=== PATIENT | male | born 1980 | race Caucasian/White ===

== ENCOUNTER → 2023-02-07 | Outpatient (CLI) | payer OTHER, SELFPAY ==
--- NOTE | 2023-02-07 13:54 | NEURO_ITS ---
NCS and/or EMG Patient Report Ordering Doctor: Joni Gann DATE OF SERVICE: 02/07/23 Tyshawn presents for electrodiagnostic testing of the right upper limb. He reports numbness and tingling in the right hand, with occasional weakness. Electrodiagnostic findings: Right median motor nerve demonstrates prolonged dis day latency with normal amplitude and conduction velocity. Normal right ulnar motor response, including conduction across the elbow. Prolonged right median F wave. Prolonged right median sensory latency at the wrist. On needle EMG, all muscles tested the right upper limb showed no evidence of denervation with normal motor unit action potentials. Electrodiagnostic impression: This is an abnormal study of the right upper limb 1. Electrodiagnostic findings suggestive of right-sided median mononeuropathy. This is consistent with a moderate right carpal tunnel syndrome. 2. No electrodiagnostic evidence is noted for cervical radiculopathy.
== END | disposition home or self-care (01) ==
PROVIDERS: PCP Family Medicine; Referring Provider Family Medicine; Visit Provider Family Medicine
DX: R20.0 Anesthesia of skin (principal); R20.2 Paresthesia of skin
CPT/HCPCS: 95886; 95909; 95910

== ENCOUNTER 2023-05-20 01:21 | Emergency (ER) | payer OTHER, SELFPAY ==
[2023-05-20 01:22] VITALS: PULSE 89; RESP 17; TEMP 36.2; O2SAT 97; BMI 44.1
[2023-05-20 01:26] VITALS: BP 132/85
[2023-05-20] MEDS: Ondansetron 4 MG/2 ML Vial IV (01:47)
[2023-05-20] MEDS: dexAMETHasone 10 MG/ML Vial IV (01:48)
[2023-05-20] MEDS: Morphine 4 MG/ML Syringe IV (01:48)
[2023-05-20] MEDS: diazePAM 5 MG Tablet PO (01:49)
[2023-05-20 01:57] LABS: Basophil# 0.05 X10^3/uL; Basophil% 0.3 % (0-1); Eosinophil# 0.11 X10^3/uL; Eosinophils% 0.7 % (0-5); Hemoglobin 13.5 g/dL (13.0-16.5); Lymphocyte % 8.2 % (19-41); Mean Corp Hgb Conc 33.8 g/dL (32-36); Mean Corpuscular Hgb 31.3 pg (27.0-32.0); Mean Corpuscular Volume 92.8 fL (80-94); Monocyte# 1.29 X10^3/uL; Monocyte% 8.8 % (0-10); NRBC Flagged by Analyzer 0 % (0-5); Neutrophil # 11.99 X10^3/uL (2.7-7.7); Neutrophil % 81.7 % (47-70); Platelet Count 259 K/mm3 (150-450); RBC Distribution Width CV 12.7 % (11.6-14.6); Red Blood Count 4.31 M/mm3 (4.6-6.2); White Blood Count 14.7 K/mm3 (4.4-11.0)
[2023-05-20 02:17] LABS: Anion Gap 6 (5-15); BUN 16 mg/dL (7-18); BUN/Creat Ratio 13.9 RATIO (10-20); CPK Total, Creatine Kinase 150 U/L (39-308); Calcium,Total 9.7 mg/dL (8.5-10.1); Chloride 105 mmol/L (98-107); Creatinine, Serum 1.15 mg/dL (0.70-1.30); EST Glomerular Filtration Rate 73 mL/min (>60); Est Glom Filt Rate - Afr Amer 89 mL/min (>60); Glucose 138 mg/dL (74-106); Magnesium 1.8 mg/dL (1.6-2.6); Potassium 4.2 mmol/L (3.5-5.1); Sodium Level 137 mmol/L (136-145)
--- NOTE | 2023-05-20 02:21 | CT_ITS ---
STUDY: CT LUMBAR SPINE WITHOUT CONTRAST REASON FOR EXAM: Male, 42 years old patient with back pain. Questionable osteomyelitis. RADIATION DOSAGE (If Supplied By Facility): CTDIvol = ( 48.72 ) mGy, DLP = ( 1744.39 ) mGycm TECHNIQUE: The patient was scanned in a multi detector CT scanner. High resolution transaxial imaging was performed. Images were obtained from T10 to sacrum. Sagittal and coronal images were reconstructed. Individualized dose optimization techniques were used for this CT. COMPARISON: Prior comparison studies are not available for review at this time. FINDINGS: There is grade 1 spondylolisthesis at L4-5 secondary to spondylolysis of L4. There is mild straightening of the normal lumbar lordosis otherwise. There is no substantial scoliosis. There is eburnation of the endplates of L4 and L5 probably secondary to chronic discogenic changes. Remaining imaged thoracic and lumbar vertebral bodies are normal in appearance. There is no demonstrated compression deformity or fracture of the visualized lumbar vertebrae. L1-2: Normal endplates. Normal disc height and morphology. Normal bilateral facet joints. Normal central canal and bilateral lateral recesses. Normal bilateral intervertebral neural foramina. L2-3: Normal endplates. Normal disc height and morphology. Normal bilateral facet joints. Normal central canal and bilateral lateral recesses. Normal bilateral intervertebral neural foramina. L3-4: There is mild annular disk bulge and osteophyte complex. There is mild degenerative arthropathy of the facet joints. Bilateral neuroforamina are narrowed. There is no appreciable acquired central canal stenosis. L4-5: There is uncovering of the disc secondary to anterolisthesis. There is severe narrowing of this disc. There is mild central canal stenosis. There is severe neural foraminal narrowing. L5-S1: Normal endplates. Normal disc height and morphology. Normal bilateral facet joints. Normal central canal and bilateral lateral recesses. Normal bilateral intervertebral neural foramina. Normal visualized paraspinous soft tissue structures. CT/Spine Lumbar without Contrast IMPRESSION: 1. No CT evidence to suggest discitis or osteomyelitis. 2. Grade 1 spondylolisthesis at L4-5 secondary to spondylolysis of L4. 3. Chronic discogenic changes are visible at L4-L5 with disc space narrowing and vacuum disc phenomenon. Electronically Signed: Mary Roy MD at 3:18 EDT ,
[2023-05-20] MEDS: Orphenadrine 60 MG/2 ML Ampul IV (02:47)
[2023-05-20] MEDS: HYDROmorphone 1 MG/ML Syringe IV (02:48)
--- NOTE | 2023-05-20 03:37 | EDS_ITS ---
HPI History of Present Illness Chief Complaint: Back Informant: patient Narrative Narrative: Patient is a 42-year-old male who reports a past medical history of chronic back pain. He states he has needed injections in the past and has a back surgeon that he sees. He states he has been doing well for quite some time and he denies any recent back surgery or injection. He also denies any loss of bowel or bladder control or IV drug use. He states that he was working on a friend's boat and after doing so noticed a small amount of pain in his low back. He states that throughout the day the pain seemed to be coming in waves and each time seem to be more and more intense. He states he got to the point where he could not get out of his car secondary to increased pain with motion. He was trying to sleep and with any type of turning he had severe pain that he felt was radiating down his spine and secondary to this presents for evaluation. [facility] Medical History (Updated 05/20/23 @ 03:[address] Amado Koo, DO) Back complaints Gout Home Medications allopurinol 300 mg tablet 300 mg PO DAILY 05/20/23 [History Last Taken Unknown] atorvastatin 40 mg tablet 40 mg PO DAILY 05/20/23 [History Last Taken Unknown] diazepam 10 mg tablet (Valium) 10 mg PO TID PRN muscle spasm 5 days #15 tabs 05/20/23 [Rx Last Taken Unknown] levothyroxine 88 mcg tablet (Synthroid) 88 mcg PO DAILY 05/20/23 [History Last Taken Unknown] oxycodone-acetaminophen 5 mg-325 mg tablet (Percocet) 1 tab PO Q6H PRN pain 3 days #12 tabs 05/20/23 [Rx Last Taken Unknown] Allergy/AdvReac Type Severity Reaction Status Date / Time No Known Allergies Allergy Verified 05/20/23 01:22 Social History Smoking Status: Never smoker ROS ROS ED Constitutional Constitutional ED: Denies chills or fever(s) Eyes Eyes: Denies change in vision ENT ENT ED: Denies sore throat Cardiovascular Cardiovascular: Denies chest pain Respiratory/Chest Respiratory/Chest: Denies cough or dyspnea Gastrointestinal Gastrointestinal: Denies abdominal pain, diarrhea, nausea or vomiting Genitourinary Genitourinary ED: Denies dysuria, hematuria or urinary frequency Musculoskeletal Musculoskeletal: Reports back pain Integumentary Denies rash Neurologic Neurologic: Denies headache(s) or paresthesias Hematologic/Lymphatic Hematologic/Lymphatic: Denies easy bleeding or easy bruising EXAM Physical Exam Const Vital Signs: 05/20/23 01:22 05/20/23 01:26 05/20/23 03:51 Temperature 97.1 F L Temperature Source Temporal Pulse Rate 89 95 Respiratory Rate 17 20 H Blood Pressure 132/85 H 133/81 H Blood Pressure Mean 100 Pulse Ox 97 98 Oxygen Delivery Method Room Air Positive well nourished, well developed and obese General Appearance ED: well developed Nutritional Appearance: obese HEENT HEENT Narrative: Normocephalic atraumatic Eyes PERRL and EOMs intact bilaterally General Eye ED: Negative for scleral icterus Neck supple Resp normal respiratory effort and clear to auscultation bilaterally Cardio regular rate and regular rhythm Rate: other Other Details: Radial and carotid pulses are equal and symmetric GI normal to inspection, nondistended, normoactive bowel sounds, non-tender, non- distended and no masses GI Narrative: No voluntary guarding or rigidity. No pulsatile mass or fluid wave. Auscultation: normoactive bowel sounds Palpation: soft Back/Spine Back/Spine Narrative: No bony deformity or step-off of the thoracic or lumbar spine. There is bilateral paralumbar tension and spasm noted that worsens with extension flexion and rotation. Negative straight leg. No clonus or Babinski. No saddle anesthesia. Patellar reflexes are plus 1 out of 4 bilaterally. No overlying soft tissue changes to suggest trauma or infection Extremity normal to inspection Neuro oriented x3 and CN's II-XII intact bilaterally Sensorium / Orientation: alert Psych mental status grossly normal Skin no rashes or lesions noted MDM MDM MDM Narrative Medical decision making narrative: Patient presented to the ER mildly hypertensive but otherwise with stable vitals. He has a known history of back problems but denies any recent trauma or excessive activity. The pain he reported was in the low back and came in waves and was worse with motion and he denied it radiating down his legs going against radiculopathy as a cause. He also denies any loss of bowel or bladder control or IV drug use which goes against cauda equina or epidural abscess. Discitis and osteomyelitis are also in the differential but patient denies any IV drug use or recent surgical procedures. As he reported the pain was more spasm in nature did elect to perform basic labs to check for electrolyte derangement and as he is on a statin medication there is concern for rhabdomyolysis so CPK was added. Blood work revealed no clinically significant findings other than a mildly elevated white blood cell count. So this is most likely elevated from stress response but as patient's had increased pain with no significant activity or injury to elective form a CT scan. CT scan of his lumbar spine revealed degenerative chronic changes without signs of osteomyelitis or discitis. On reevaluation the patient has had improvement of his pain and therefore he will be given oral medications to help with symptoms at home as work-up indicates this is most likely musculoskeletal in nature. History & Record Review Discussion w/independent historian: Patient Lab Data Labs: Laboratory Results - last 24 hr 05/20/23 01:50 WBC 14.7 H RBC 4.31 L Hgb 13.5 Hct 40.0 MCV 92.8 MCH 31.3 MCHC 33.8 RDW Std Deviation 43.0 RDW Coeff of Gail 12.7 Plt Count 259 MPV 9.0 Immature Gran % (Auto) 0.300 Neut % (Auto) 81.7 H Lymph % (Auto) 8.2 L [place] % (Auto) 8.8 Eos % (Auto) 0.7 Baso % (Auto) 0.3 Absolute Neuts (auto) 12.0 H Absolute Lymphs (auto) 1.20 Nucleated RBC % 0 Sodium 137 Potassium 4.2 Chloride 105 Carbon Dioxide 26.0 Anion Gap 6 BUN 16 Creatinine 1.15 Estim Creat Clear Calc 79.30 Est GFR (MDRD) Af Amer 89 Est GFR (MDRD) Non-Af 73 BUN/Creatinine Ratio 13.9 Glucose 138 H Calcium 9.7 Magnesium 1.8 Total Creatine Kinase 150 Radiography Diagnostic Testing: Clinical Impression(s) from Imaging Studies Lumbar Spine CT 05/20/23 02:21 IMPRESSION: 1. No CT evidence to suggest discitis or osteomyelitis. 2. Grade 1 spondylolisthesis at L4-5 secondary to spondylolysis of L4. 3. Chronic discogenic changes are visible at L4-L5 with disc space narrowing and vacuum disc phenomenon. Electronically Signed: Mary Roy MD at 3:18 EDT , Discharge Plan Triage Chief Complaint: Back ED Provider: Amado Koo Dx/Rx/DC Orders Clinical Impression: Acute exacerbation of chronic low back pain, Muscle spasm of back Instructions: ED Back Spasm, No Trauma, ED Back Sprain/Strain Prescriptions: New oxycodone-acetaminophen [Percocet] 5-325 mg tablet 1 tab PO Q6H PRN (Reason: pain) 3 Days Qty: 12 0RF diazepam [Valium] 10 mg tablet 10 mg PO TID PRN (Reason: muscle spasm) 5 Days Qty: 15 0RF No Action allopurinol 300 mg tablet 300 mg PO DAILY atorvastatin 40 mg tablet 40 mg PO DAILY levothyroxine [Synthroid] 88 mcg tablet 88 mcg PO DAILY Primary Care Provider: Joni Gann Referrals: Joni Gann MD [Primary Care Provider] - Activity Restrictions/Additional Instructions: Please continue to stretch and heat your low back and use topical lidocaine patches to help reduce pain and spasm. Your work-up today reveals no signs of electrolyte derangement or obvious signs of infection. Please follow-up with your back surgeon for repeat evaluation and return to the ER should you have any further concerns Disposition Disposition: Home, Self Care Discharge Date/Time: 05/20/23 04:36
[2023-05-20 03:51] VITALS: BP 133/81; PULSE 95; RESP 20; O2SAT 98
== END 2023-05-20 04:36 | disposition home or self-care (01) ==
PROVIDERS: Emergency Provider Emergency Medicine; PCP Family Medicine; Visit Provider Emergency Medicine
DX: G89.29 Other chronic pain (principal); M62.830 Muscle spasm of back; M10.9 Gout, unspecified; M54.50 Low back pain, unspecified
CPT/HCPCS: 72131; 80048; 82550; 83735; 85025; 96374; 96375; 99285; A4216; J2405